=== PATIENT | male | born 1970 | race Caucasian/White ===

== ENCOUNTER 2017-04-24 06:20 | Day surgery (SDC) | payer OTHER ==
[2017-04-24] VITALS (13 sets, daily range): BP systolic 125–158; BP diastolic 69–98; PULSE 56–104; RESP 11–23; Ht 177.8 cm; Wt 90.8 kg
[~2017-04-24] VITALS: Ht 177.8 cm; Wt 90.8 kg
--- NOTE | 2017-04-24 07:34 | HPN ---
Date/Time of Note Date/Time of Note DATE: 04/24/17 TIME: 07:33 Interval H&P Admission Note Pt. seen H&P reviewed: No system changes ANNIE MUSE MD Apr 24, 2017 07:34
[2017-04-24] MEDS ORDERED: LIDOCAINE 2% (SDV) 5 ML INJ ONE (07:56)
[2017-04-24] MEDS ORDERED: SUCCINYLCHOLINE CHLORIDE 100 MG/5 ML SYG IV ONE (07:56)
[2017-04-24] MEDS ORDERED: ROCURONIUM 50 MG INJ ONE (07:56)
[2017-04-24] MEDS ORDERED: MIDAZOLAM 1 MG/ML 2 ML INJ ONE (07:56)
[2017-04-24] MEDS ORDERED: FENTAnyl 50 MCG/ML VIAL ONE (07:56)
[2017-04-24] MEDS ORDERED: PROPOFOL 20 ML ONE (07:56)
[2017-04-24] MEDS ORDERED: CEFAZOLIN 1 GM INJ ONE (08:22)
[2017-04-24] MEDS ORDERED: FAMOTIDINE 20 MG INJ ONE (08:22)
[2017-04-24] MEDS ORDERED: DEXAMETHASONE 4 MG/ML 1 ML INJ ONE (08:22)
[2017-04-24] MEDS ORDERED: ONDANSETRON 4 MG INJ ONE ×2 (08:22→10:41)
[2017-04-24] MEDS ORDERED: HYDROmorphONE 2 MG/ML SYG ONE (08:25)
[2017-04-24] MEDS ORDERED: BUPIVACAINE 0.5%/EPI (SDV) 30 ML INJ ONE (08:39)
[2017-04-24] MEDS ORDERED: POLYMYXIN/BACITRACIN 1L IRRIG ONE (08:39)
[2017-04-24] MEDS ORDERED: THROMBIN 5000 UNIT VIAL ONE ×2 (08:40→09:13)
[2017-04-24] MEDS ORDERED: GELATIN SIZE 100 SPONGE ONE (08:40)
[2017-04-24] MEDS ORDERED: EPHEDrine SULFATE 50 MG/5 ML SYG ONE (09:03)
[2017-04-24] MEDS ORDERED: BETAMET NA PHOS/AC(6 MG/ML) 5ML INJ ONE (09:50)
[2017-04-24] MEDS ORDERED: GLYCOPYRROLATE 0.4 MG INJ ONE ×2 (10:14)
[2017-04-24] MEDS ORDERED: NEOSTIGMINE 3 MG/3 ML SYRINGE ONE ×2 (10:14)
--- NOTE | 2017-04-24 10:23 | RADRPT ---
PROCEDURE: Intraoperative imaging of the lumbar spine with fluoroscopy. CLINICAL INDICATION: Back pain. Intraoperative. TECHNIQUE: 3 images of the lumbar spine were obtained in the operating room with an image intensif ier. No radiologist was in attendance. Fluoroscopy time is 7 seconds. COMPARISON: No prior study is available for comparison. FINDINGS: For the purposes of this report, the last apparent true disc level is considered to be L5-S1. Based on this, the posterior surgical instrument is present overlying the L4-5 level. IMPRESSION: 1. Intraoperative imaging of the lumbar spine. RPTAT: QQ .Ananda Gonzalez MD, Date Time Electronically viewed and signed by .Ananda Gonzalez MD, on 04/24/2017 10:23 .R/
[2017-04-24] MEDS ORDERED: MEPERIDINE 25 MG INJ IV PRN (10:30)
[2017-04-24] MEDS ORDERED: OXYCODONE/ACETAMINOPHEN (5/325) TAB PO PRN ×2 (10:30)
[2017-04-24] MEDS ORDERED: HYDROmorphONE (0.2 MG/ML) 10ML SYG IV PRN ×3 (10:30)
[2017-04-24] MEDS ORDERED: DIPHENHYDRAMINE 50 MG INJ IV PRN (10:30)
[2017-04-24] MEDS ORDERED: FENTAnyl 50 MCG/ML VIAL IV PRN ×3 (10:30)
[2017-04-24] MEDS ORDERED: ONDANSETRON 4 MG INJ IV PRN ×2 (10:30→11:00)
[2017-04-24] MEDS ORDERED: PROCHLORPERAZINE 10 MG INJ IV PRN (10:30)
--- NOTE | 2017-04-24 10:32 | OPR ---
Date/Time of Note Date/Time of Note DATE: 04/24/17 TIME: 10:29 Operative Report Free Text/Dictation DATE OF OPERATION: 04/24/2017 PREOPERATIVE DIAGNOSES: L4-5 spinal stenosis with Right L5 radiculopathy POSTOPERATIVE DIAGNOSES: L4-5 spinal stenosis with Right L5 radiculopathy OPERATION PERFORMED: 1. Right sided L4-5 partial laminectomy, medial facetectomy, and foraminotomy SURGEON: Annie Muse MD ANESTHESIA: General endotracheal ESTIMATED BLOOD LOSS: Minimal SURGICAL INDICATION: The patient is a 46 year-old malewho presents with an increasing history of right lower extremity pain with weakness. The patient was unable to ambulate significant distances secondary to their pain and right lower extremity weakness in an L5 nerev distribution. The patient had failed conservative treatment. Risks, benefits, and alternatives to a decompressive procedure including but not exclusive of risks of bleeding, infection, nerve injury, cauda equina syndrome, iatrogenic instability, dural tear, myocardial infarction, stroke, pulmonary embolism were explained to the patient, and he wished to proceed. DESCRIPTION OF TECHNIQUE: The patient was identified in the preoperative area and taken to the operating room. Rapid induction of general endotracheal anesthesia was performed. Patient was given 2 g of cefazolin for prophylaxis. The patient was then placed in the prone position on the axis table with all bony prominences well padded. The back was prepped and draped in usual sterile manner. Using a spinal needle and intraoperative fluoroscopy, the L4-5 level was clearly identified. The skin was injected using 0.5% Marcaine with epinephrine. Longitudinal midline incision was then created using a 10 blade. Further dissection through soft tissue was performed using electrocautery down to the Right L4 spinous processes. Dissection was taken down the right side of the lamina and over the facet joint capsule. A self-retaining retractor was applied. Again, intraoperative fluoroscopy confirmed the level. The microscope was brought into use for microdissection. The high-speed bur was used to thin the caudal aspect of the L4 lamina. Kerrison rongeurs were then used to resect a portion of the lamina, the medial facet and the bone overlying the foramen. Ligamentum flavum was also resected using the Kerrison rongeurs. Care was taken to protect the thecal sac throughout the decompressive procedure. Palpation with a ball-tip probe did not reveal any further stenosis in the central, subarticular, or foraminal areas. The exiting Right L4 nerve root and traversing L5 nerve roots were both directly visualized and noted to be decompressed. The cephalad and caudad extent of the decompression were also confirmed using ball-tip probes and intraoperative fluoroscopy. The wound was irrigated copiously using normal saline. Meticulous attention was paid toward hemostasis using bipolar cautery, FloSeal, Gelfoam and thrombin. Care was taken to remove all FloSeal and Gelfoam and thrombin prior to wound closure. The fascia was then closed using 1 Vicryl in interrupted fashion. Subcutaneous tissue was closed using 2-0 Vicryl in interrupted fashion. Skin was closed using a running 4-0 Monocryl stitch. The wound was dressed using Dermabond, sterile 4x4 gauze and Tegaderm. The patient was returned to the supine position. They were extubated immediately postoperatively and taken to the recovery room in stable condition. COMPLICATIONS: None. Procedure Date: Apr 24, 2017 Preoperative Diagnosis L4-5 spinal stenosis with Right L5 radiculopathy Postoperative Diagnosis L4-5 spinal stenosis with Right L5 radiculopathy Operation/Procedure Performed 1. Right sided L4-5 partial laminectomy, medial facetectomy, and foraminotomy Surgeon see signature line Perforator Operator Oil Well None Anesthesia Type: general Estimated Blood Loss: minimal Transfusion none Specimen None Grafts/Implants none Complications none Pt Condition Post Procedure: stable Disposition: PACU Procedure Description DESCRIPTION OF TECHNIQUE: The patient was identified in the preoperative area and taken to the operating room. Rapid induction of general endotracheal anesthesia was performed. Patient was given 2 g of cefazolin for prophylaxis. The patient was then placed in the prone position on the axis table with all bony prominences well padded. The back was prepped and draped in usual sterile manner. Using a spinal needle and intraoperative fluoroscopy, the L4-5 level was clearly identified. The skin was injected using 0.5% Marcaine with epinephrine. Longitudinal midline incision was then created using a 10 blade. Further dissection through soft tissue was performed using electrocautery down to the Right L4 spinous processes. Dissection was taken down the right side of the lamina and over the facet joint capsule. A self-retaining retractor was applied. Again, intraoperative fluoroscopy confirmed the level. The microscope was brought into use for microdissection. The high-speed bur was used to thin the caudal aspect of the L4 lamina. Kerrison rongeurs were then used to resect a portion of the lamina, the medial facet and the bone overlying the foramen. Ligamentum flavum was also resected using the Kerrison rongeurs. Care was taken to protect the thecal sac throughout the decompressive procedure. Palpation with a ball-tip probe did not reveal any further stenosis in the central, subarticular, or foraminal areas. The exiting Right L4 nerve root and traversing L5 nerve roots were both directly visualized and noted to be decompressed. The cephalad and caudad extent of the decompression were also confirmed using ball-tip probes and intraoperative fluoroscopy. The wound was irrigated copiously using normal saline. Meticulous attention was paid toward hemostasis using bipolar cautery, FloSeal, Gelfoam and thrombin. Care was taken to remove all FloSeal and Gelfoam and thrombin prior to wound closure. The fascia was then closed using 1 Vicryl in interrupted fashion. Subcutaneous tissue was closed using 2-0 Vicryl in interrupted fashion. Skin was closed using a running 4-0 Monocryl stitch. The wound was dressed using Dermabond, sterile 4x4 gauze and Tegaderm. The patient was returned to the supine position. They were extubated immediately postoperatively and taken to the recovery room in stable condition. ANNIE MUSE MD Apr 24, 2017 10:32
--- NOTE | 2017-04-24 10:36 | PDOCDIS ---
Discharge Instructions CONDITION Patient Condition: Good HOME CARE INSTRUCTIONS: Diet Instructions: Regular ACTIVITY: Activity Restrictions: Avoid heavy lifting Bathing Restrictions: Shower FOLLOW UP/APPOINTMENTS Follow-up Plan Follow-up with Dr. Muse in 2 weeks ANNIE MUSE MD Apr 24, 2017 10:35
[2017-04-24] MEDS ORDERED: PROCHLORPERAZINE 10 MG TAB PO PRN (11:00)
[2017-04-24] MEDS ORDERED: NACL 0.9% 3 ML SYG IV SCH (11:00)
[2017-04-24] MEDS ORDERED: HYDROCODONE/APAP (5/325) TAB PO PRN ×2 (11:00)
[2017-04-24] MEDS ORDERED: NALOXONE (0.4 MG/ML) INJ IV PRN (11:00)
[2017-04-24] MEDS ORDERED: ACETAMINOPHEN 325 MG TAB PO PRN (11:00)
== END 2017-04-24 14:04 | disposition home or self-care (01) ==
LOC: SDS 06:20 → EDSTATUS 08:00 → SDS 14:04
PROVIDERS: ATTEND Orthopaedic Surgery
DX: M48.061 Spinal stenosis, lumbar region without neurogenic claudication (principal); M54.16 Radiculopathy, lumbar region
CPT/HCPCS: 63047; 72100; 86850; 86900; 86901; 97163; J0690; J0702; J1100; J1170; J2250; J2405; J2710; J3010